=== PATIENT | male | born 1950 | race Caucasian/White ===

== ENCOUNTER 2018-01-17 19:06 | Emergency (ER) | payer MEDICARE ==
--- NOTE | 2018-01-17 22:00 | CT ---
CT ABDOMEN AND PELVIS: 01/17/2018 PROVIDED CLINICAL HISTORY: Abdominal pain. COMPARISON: 12/11/2017 FINDINGS: The visualized lung bases are free of significant opacities. There are two ureteral calculi present at the left ureterovesical junction. The larger of these sean ures 5 to 6 mm. The smaller measures 1 to 2 mm. There is moderate left hydronephrosis and left hydr oureter. There is prominent perinephric fat stranding. No additional urinary tract calculi are evid ent. The solid abdominal organs are suboptimally evaluated without IV contrast but demonstrate an otherwis e unremarkable unenhanced CT appearance. There is no bowel dilatation, additional inflammatory fat stranding, free fluid, or free air apparent . Surgical clips are again seen in the pelvis. The osseous structures demonstrate no concerning osteoblastic or osteolytic lesions. IMPRESSION: Distal left ureteral/ureterovesical junction calculi with moderate left hydronephrosis and hydrourete r and prominent perinephric fat stranding. POS: MARK
[2018-01-17] MEDS ORDERED: HYDROcodone/Acetaminophen 10/325 mg Tablet ONE (23:06)
== END 2018-01-17 23:15 | disposition home or self-care (01) ==
LOC: ERS 19:06
DX: N13.2 Hydronephrosis with renal and ureteral calculous obstruction (principal); I10 Essential (primary) hypertension; Z87.891 Personal history of nicotine dependence; Z79.899 Other long term (current) drug therapy; Z79.82 Long term (current) use of aspirin; Z79.84 Long term (current) use of oral hypoglycemic drugs
CPT/HCPCS: 74176

== ENCOUNTER 2018-04-13 08:24 | Outpatient (CLI) | payer MEDICARE ==
[2018-04-13 09:08] LABS: Estimated GFR-MDRD - POC Greater than 90
--- NOTE | 2018-04-13 13:10 | MRI ---
MRI LUMBAR SPINE WITH AND WITHOUT CONTRAST: HISTORY: Lumbar radiculopathy. Previous lumbar surgery. COMPARISON: None. TECHNIQUE: MRI lumbar spine is performed with and without intravenous Gadolinium administration. Multisequentia l, multiplanar imaging is performed. FINDINGS: There is appropriate T1 marrow signal intensity of the lumbar vertebrae. Lumbar spine vertebral body height is maintained. There is no fracture. No spondylolisthesis. No significant STIR hyperintens ity to suggest vertebral body edema from fracture. No evidence of ligamentous injury. There are typ e I and type II modic changes at the L5-S1 disk space. Symmetric signal intensity of the psoas muscles. Appropriate signal intensity of the visualized luisa d organs.. There is a small amount of fluid in the right perinephric space without associated right- sided hydronephrosis. Significance is uncertain. The conus medullaris terminates at the mid to lower aspect of T12. Post contrast images do not demonstrate any abnormal enhancement of the thecal sac or of the contents within the thecal sac. Additionally, there is no abnormal enhancement of the vertebral bodies. T12-L1: No significant central canal stenosis or neural foraminal narrowing. L1-L2: Adequate disk hydration. No significant central canal stenosis or neural foraminal narrowing . L2-L3: Adequate disk hydration. No significant central canal stenosis or neural foraminal narrowing . L3-L4: Desiccation with mild loss of disk space height. Generalized disk bulge, ligamentum flavum t hickening, and facet hypertrophy result in moderate central canal stenosis. Mild right and moderate left foraminal narrowing. L4-L5: Adequate disk hydration. No significant loss of disk space height. Generalized disk bulge, ligamentum flavum thickening, and facet hypertrophy result in minimal stenosis of the thecal sac. Th ere is mild narrowing of the right subarticular zone secondary to disk material and posterior element hypertrophy. There is some mass effect without obscuration of the traversing right L5 nerve root. Mild right and mild left foraminal narrowing. L5-S1: Desiccation with severe loss of disk space height. There is a right hemilaminectomy defect. There is no significant stenosis of the thecal sac. There is a broad-based disk bulge with a right subarticular component. This disk does abut and slightly displace the traversing right S1 nerve root . On the postcontrast images, there is also evidence of enhancing scar tissue in the right subarticu lar zone, which encompasses the traversing right S1 nerve root. There does appear to be some enhance ment associated with the nerve root. There is associated T2 hyperintensity and focal enlargement of the nerve root in the subarticular zone. A component of the abnormal soft tissue signal intensity in the right subarticular zone may be due to sequestered disk material, as suggested on sagittal image #8, series 8. IMPRESSION: 1. Postoperative changes of right hemilaminectomy defect at L5-S1. There is disk material in the ri ght subarticular zone with mass effect, edema, and enhancement involving the subarticular right S1 ne rve roots. There is encompassing scar tissue with some component of disk material present. There ma y be sequestered disk material in the right subarticular zone, compounding the overall abnormal signa l intensity noted in the right subarticular zone. This sequestered disk may contribute to what appea rs to be edema and abnormal enhancement of right S1 nerve root. 2. Degenerative disk disease at L3-L4, as described above. There is moderate to severe central tamara l stenosis. 3. Mild narrowing of the right subarticular zone at L4-L5. POS: MARK
[2018-04-13] MEDS ORDERED: Gadobenate Dimeglumine 529 MG/1 ML (20ML VIAL) ONE (14:07)
== END 2018-04-13 08:25 | disposition home or self-care (01) ==
LOC: TBSIIMAG 08:24
PROVIDERS: ATTEND Neurological Surgery
DX: M51.16 Intervertebral disc disorders with radiculopathy, lumbar region (principal); M48.061 Spinal stenosis, lumbar region without neurogenic claudication; R60.0 Localized edema; Z98.890 Other specified postprocedural states
CPT/HCPCS: 72158; 82565; A9579

== ENCOUNTER 2018-05-03 09:45 | Outpatient (CLI) | payer MEDICARE ==
[2018-05-03 13:20] LABS: Mean Corpuscular HGB CONC 33.4 g/dL (32.0-36.0); Mean Corpuscular Hemoglobin 33.2 pg (27.0-31.0); Mean Corpuscular Volume 99.4 fL (78.0-98.0); Mean Platelet Volume 7.9 fL (7.4-10.4); Platelet Count 302 thou/uL (130-400); RBC Distribution Width 13.5 % (11.5-14.5); Red Blood Cell (RBC) Count 4.51 mill/uL (4.70-6.10); White Blood Cell (WBC) Count 7.2 thou/uL (4.8-10.8)
[2018-05-03 13:41] LABS: Anion Gap 16 mmol/L (10-20); BUN (Urea Nitrogen) 17 mg/dL (8.4-25.7); Calc. Creatinine Clearance 0 mL/min (70-130); Calcium 9.8 mg/dL (7.8-10.44); Carbon Dioxide 23 mmol/L (23-31); Chloride 105 mmol/L (98-107); Estimated GFR-MDRD 82; Glucose 75 mg/dL (80-115); Potassium 4.3 mmol/L (3.5-5.1); Sodium 140 mmol/L (136-145)
--- NOTE | 2018-05-04 07:57 | EKG ---
Test Reason : Blood Pressure : / mmHG Vent. Rate : 054 BPM Atrial Rate : 054 BPM P-R Int : 160 ms QRS Dur : 102 ms QT Int : 434 ms P-R-T Axes : 066 059 076 degrees QTc Int : 411 ms Sinus bradycardia Nonspecific ST and T wave abnormality Abnormal ECG Confirmed by DR. Ally ALMONTE ([id number]) on 05/04/2018 7:56:46 AM Referred By: EVAN Confirmed By:DR. Ally ALMONTE
== END 2018-05-03 09:46 | disposition home or self-care (01) ==
LOC: LABBT 09:45
PROVIDERS: ATTEND Neurological Surgery
DX: Z01.818 Encounter for other preprocedural examination (principal); M48.061 Spinal stenosis, lumbar region without neurogenic claudication; M54.16 Radiculopathy, lumbar region
CPT/HCPCS: 80048; 85027; 93005; 93010

== ENCOUNTER 2018-05-10 05:57 | Day surgery (SDC) | payer MEDICARE ==
[2018-05-03 10:15] VITALS: BMI 30.9
--- NOTE | 2018-05-09 16:18 | HP ---
HISTORY OF PRESENT ILLNESS: Mr. Mead is a pleasant 68-year-old man who presents for evaluation of b ilateral S1 pains with certain movements and with prolonged recumbent positioning. Gait is mostly un affected. He has a new MRI from [facility], which reveals severe lumbar stenosis L3-L4 and lateral recess narrowing on the right at L5, which matched the symptoms that he presents with. He hopes to move for mei with surgery if possible. PAST MEDICAL HISTORY: Significant for prediabetes, hypercholesterolemia, asthma, previous cancer, co ronary arterial disease, and hypertension. CURRENT MEDICATIONS: Aspirin, Plavix, carvedilol, valsartan, hydrochlorothiazide, atorvastatin, levo thyroxine, metformin, ranitidine, dicyclomine, Bentyl, Xanax, nitroglycerin, F[place], temazepam and Sym bicort. PAST SURGICAL HISTORY: ACDF and lumbar decompression. ALLERGIES: No known drug allergies. PHYSICAL EXAMINATION: PSYCHIATRIC: Alert and oriented x3. Gait is somewhat slowed. Motor exam of lower extremities reveals 5/5 strength bilaterally in all muscle groups of the lower extremities. ASSESSMENT: Lumbar radiculopathy. PLAN: Dr. Haynes met with the patient, reviewed imaging ultimately advocated for L3-L4 decompression and right L5 facetectomy. He explained to the patient the risks, benefits, and alternatives to the p rocedure. The patient expressed understanding and would like to move forward with surgery as discuss ed. I do believe the patient is mentally competent and capable of making medical decisions for himse lf and we will move forward with surgery as planned. Zackary Bhatt PA-C dictating for Dr. Haynes.
[2018-05-10] MEDS ORDERED: Fentanyl 100 MCG/2 ML VIAL ONE (06:33)
[2018-05-10] MEDS ORDERED: Thrombin 5000 UNITS/5 ML VIAL ONE (06:39)
[2018-05-10] MEDS ORDERED: Bupivacaine HCl 0.5%/Epinephrine 1:200,000/PF 30 ml Vial ONE (06:39)
[2018-05-10] MEDS ORDERED: CEFAZOLIN/Water 2 GM/20 ML SYRINGE ONE ×2 (07:08→10:24)
[2018-05-10] MEDS ORDERED: Midazolam HCl 2 mg/2 ml Vial ONE (07:12)
[2018-05-10] MEDS ORDERED: HYDROcodone/Acetaminophen 5/325 mg Tablet ONE ×2 (10:14→11:16)
--- NOTE | 2018-05-10 12:45 | OP ---
DATE OF PROCEDURE: 05/10/2018 SURGEON: Oc Haynes M.D. ANIMAL KEEPER HEAD: Zackary Bhatt PA-C. INDICATION: Pain. DIAGNOSIS: Lumbar stenosis and lumbar radiculopathy. PROCEDURE: L3-L4 lumbar decompression and through a separate incision right L5 reoperation, decompre ssion. ANESTHESIA: General. TECHNIQUE: The patient was brought into the operating room and placed under general anesthesia. He was flipped from a supine to a prone position on the operating room table. Two linear incisions wer e planned, one over L3-4 and the second over L5-S1. After prepping and draping and after an appropri ate operative pause, the L3-4 incision was created. The soft tissues were swept away from midline. Self-retaining retractors were placed in the wound for optimal exposure. After confirming the approp riate location with C-arm fluoroscopy, an Adson rongeur as well as a high-speed cutting drill bit and 2, 3 and 4 mm Kerrisons were used to perform decompression at the L3-L4 segment. After decompressin g the central canal and lateral recesses, we redirected our attention to the L5-S1 segment where a se cond linear incision was created. We swept tissues away from midline on the right side. There was s car present secondary to a prior operative procedure. After confirming the appropriate level with C- arm fluoroscopy, bone defects were identified at the prior L5-S1 decompression. This decompression w as extended in a cephalad as well as lateral decompression in order to further decompress the exiting S1 nerve root. After decompressing this segment, the wound was irrigated. Hemostasis was maintaine d throughout. Both wounds were then irrigated. Both wounds had hemostasis maintained. For both wou nds, they were closed in anatomic layers. A pressure dressing was then applied and the procedure cam e to an end without known complication.
== END 2018-05-10 11:25 | disposition home or self-care (01) ==
LOC: SDC 05:57
PROVIDERS: ATTEND Neurological Surgery
PROC: 01NB0ZZ Release Lumbar Nerve, Open Approach (ICD-10-PCS; principal; 2018-05-10)
DX: M48.061 Spinal stenosis, lumbar region without neurogenic claudication (principal); M54.16 Radiculopathy, lumbar region; E78.00 Pure hypercholesterolemia, unspecified; J45.909 Unspecified asthma, uncomplicated; I25.10 Atherosclerotic heart disease of native coronary artery without angina pectoris; I10 Essential (primary) hypertension; Z87.891 Personal history of nicotine dependence; Z79.82 Long term (current) use of aspirin; Z79.01 Long term (current) use of anticoagulants; Z79.899 Other long term (current) drug therapy; Z79.84 Long term (current) use of oral hypoglycemic drugs; Z98.890 Other specified postprocedural states
CPT/HCPCS: 76001; J0131; J0670; J2250; J3010

== ENCOUNTER 2019-04-20 07:46 | Outpatient (CLI) | payer MEDICARE ==
[2019-04-20] MEDS ORDERED: Gadobenate Dimeglumine 529 MG/1 ML (20ML VIAL) ONE (09:00)
--- NOTE | 2019-04-20 09:26 | MRI ---
MR the lumbar spine with and without contrast INDICATION: 69-year-old male with history of 2 separate lumbar surgeries with chronic low back pain COMPARISON: MR the lumbar spine with and without contrast dated April 13, 2018 TECHNIQUE: Multiplanar multisequence MR images were obtained of lumbar spine with and without IV cont rast. Contrast: 20 mL MultiHance cc of MultiHance. FINDINGS: Bone marrow: Normal. Distal spinal cord and conus: Normal. Conus is seen to terminate at the T12 level. Visualized retroperitoneum and paraspinal soft tissues: There has been interval postsurgical change o f a laminectomy at L3-4. Vertebral levels: L5-S1: There is stable loss of disc space height in addition to a broad-based disc bulge and superimp osed right paracentral disc protrusion. There is stable moderate to severe narrowing of the right lateral recess with contact of the traversing right S1 nerve root by the disc protrusion. Mild bilate ral neural foraminal narrowing is stable. L4-5: There is a broad-based bulge with facet hypertrophy and ligament flavum hypertrophy inducing st able mild canal narrowing and mild bilateral neural foraminal narrowing L3-4: There is improvement in the central canal narrowing due to laminectomy at L3-4. The broad-based bulge inducing stable mild bilateral neural foraminal narrowing L2-3: No appreciable central canal or neuroforaminal narrowing. L1-L2: No appreciable central canal or neuroforaminal narrowing. T12-L1: No appreciable central canal or neuroforaminal narrowing. Postcontrast series: There is mild enhancement of the posterior epidural soft tissues at the laminect wale site at L3-4 likely related to scar. IMPRESSION: 1. Interval postoperative change of a laminectomy at L3-4 with improvement in the central canal narro wing seen from the prior exam. 2. Multilevel spondylosis of the lumbar spine is similar appearing. Mild central canal narrowing and mild neural foraminal narrowing at L4-5 is stable. Mild bilateral neural foraminal narrowing at L5-S1 is stable. The right paracentral disc protrusion L5-S1 inducing moderate to severe narrowing of the right lateral recess with contact of the traversing right S1 nerve root is stable. There is stable mild bilateral neural foraminal narrowing at L3-4.
== END 2019-04-20 07:47 | disposition home or self-care (01) ==
LOC: SCSMRI 07:46
PROVIDERS: ATTEND Neurological Surgery
DX: M47.26 Other spondylosis with radiculopathy, lumbar region (principal); M51.17 Intervertebral disc disorders with radiculopathy, lumbosacral region; M48.061 Spinal stenosis, lumbar region without neurogenic claudication; M48.07 Spinal stenosis, lumbosacral region; Z98.890 Other specified postprocedural states
CPT/HCPCS: 72158; 82565; A9577

== ENCOUNTER 2019-05-16 06:44 | Outpatient (CLI) | payer MEDICARE ==
[2019-05-16 10:54] LABS: Hemoglobin 15.3 g/dL (14.0-18.0); Mean Corpuscular HGB CONC 33.3 g/dL (32.0-36.0); Mean Corpuscular Hemoglobin 31.9 pg (27.0-31.0); Mean Corpuscular Volume 95.8 fL (78.0-98.0); Mean Platelet Volume 7.5 fL (7.4-10.4); Platelet Count 306 thou/uL (130-400); RBC Distribution Width 13.2 % (11.5-14.5); White Blood Cell (WBC) Count 12.8 thou/uL (4.8-10.8)
[2019-05-16 11:18] LABS: Anion Gap 14 mmol/L (10-20); BUN (Urea Nitrogen) 19 mg/dL (8.4-25.7); Calc. Creatinine Clearance 0 mL/min (70-130); Calcium 9.7 mg/dL (7.8-10.44); Carbon Dioxide 24 mmol/L (23-31); Chloride 102 mmol/L (98-107); Estimated GFR-MDRD 85; Glucose 83 mg/dL (83-110); Potassium 3.7 mmol/L (3.5-5.1); Sodium 136 mmol/L (136-145)
== END 2019-05-16 06:45 | disposition home or self-care (01) ==
LOC: LABBT 06:44
PROVIDERS: ATTEND Neurological Surgery
DX: Z01.812 Encounter for preprocedural laboratory examination (principal); M54.16 Radiculopathy, lumbar region
CPT/HCPCS: 80048; 85027

== ENCOUNTER 2019-05-23 06:09 | Day surgery (SDC) | payer MEDICARE ==
[2019-05-16 09:39] VITALS: BMI 32.1
[2019-05-23] MEDS ORDERED: Bupivacaine HCl 0.5%/Epinephrine 1:200,000/PF 30 ml Vial ONE (06:24)
[2019-05-23] MEDS ORDERED: Thrombin 5000 UNITS/5 ML VIAL ONE (06:24)
[2019-05-23] MEDS ORDERED: Fentanyl 100 MCG/2 ML VIAL ONE ×2 (06:38→07:35)
--- NOTE | 2019-05-23 07:25 | HP ---
HISTORY OF PRESENT ILLNESS: Mr. Mead underwent lumbar decompression of L3-L4 decompression last year, did quite well until beginning of May when he attempted to move a treadmill at the house. This resulted in low back pain, but then followed up with both us and physical therapy as well as pain management and no longer having radicular pains. He reports his pain has continued to re-develop that seems to match S1 radiculopathy. He also has symptoms of neurogenic claudication. He has an MRI from [facility] that reveals severe stenosis essentially at L3-4 and likely explains this. PAST MEDICAL HISTORY: Hypercholesterolemia, type 2 diabetes, coronary arterial disease, hypertension, asthma. PAST SURGICAL HISTORY: CABG, lumbar decompression, . MEDICATIONS: 1. Aspirin. 2. Plavix. 3. Carvedilol. 4. Valsartan. 5. Atorvastatin. 6. Levothyroxine. 7. Metformin. 8. Ranitidine. 9. Dicyclomine. 10. Alprazolam. 11. Centrahoma. 12. Temazepam. 13. Budesonide. PHYSICAL EXAMINATION: The patient is alert and oriented x3. Gait is mildly antalgic right lower extremity. Leg raise negative. ASSESSMENT: Lumbar stenosis with claudication. PLAN: Dr. Haynes met with the patient, reviewed imaging, advocated for L3-4 decompression. He explained to the patient the risks, benefits, and alternatives to the procedure. The patient expressed understanding and elected to move forward with surgery as discussed. I do believe the patient is mentally competent and capable of making medical decisions for himself. We will move forward with surgery as planned. Job ID: [id number]
[2019-05-23] MEDS ORDERED: Tamsulosin HCl 0.4 MG CAP ONE (09:57)
[2019-05-23] MEDS ORDERED: HYDROcodone/Acetaminophen 5/325 mg Tablet ONE (12:12)
--- NOTE | 2019-05-23 16:14 | OP ---
DATE OF PROCEDURE: 05/23/2019 LIQUIFIED NATURAL GAS TECHNICIAN: Zackary Bhatt PA-C INDICATION: Pain. DIAGNOSES: Lumbar radiculopathy and lumbar stenosis. PROCEDURES PERFORMED: Reoperation at L3-L4, reoperation decompression, and laminectomy. Separately, right L5 hemilaminectomy, medial facetectomy, and decompression. ANESTHESIA: General. DESCRIPTION OF PROCEDURE: The patient was brought into the operating room, placed under general anesthesia. He was flipped from the supine to prone position on operating room table. The previous linear incisions were identified and prepped and draped spanning 3-4 and 5-1. After prepping and draping and after an appropriate operative pause, the incision was created. The soft tissues were swept right of midline down at L5. A high-speed cutting drill bit as well as 2, 3, and 4 mm Kerrisons were used to perform a laminectomy at this segment. The lateral recesses including the descending S1 nerve root were decompressed. We then redirected our attention to the level above at L3-L4, where the prior laminectomy site was identified along the inferior aspect of the segment. The spinous process and laminectomy superiorly were removed until the lateral recesses and central canal decompressed. There was synovial cyst present on the left side at the L3-L4 segment. After decompressing the segment, the wound was irrigated. Hemostasis was maintained throughout. The wound was then closed in anatomic layers and a pressure dressing was applied. There were no known procedural complications. Job ID: [id number]
== END 2019-05-23 12:57 | disposition home or self-care (01) ==
LOC: SDC 06:09
PROVIDERS: ATTEND Neurological Surgery
PROC: 01NB0ZZ Release Lumbar Nerve, Open Approach (ICD-10-PCS; principal; 2019-05-23)
PROC: 01NB0ZZ Release Lumbar Nerve, Open Approach (ICD-10-PCS; 2019-05-23)
DX: M48.062 Spinal stenosis, lumbar region with neurogenic claudication (principal); M54.16 Radiculopathy, lumbar region; M71.38 Other bursal cyst, other site; I10 Essential (primary) hypertension; E78.5 Hyperlipidemia, unspecified; E78.00 Pure hypercholesterolemia, unspecified; E11.9 Type 2 diabetes mellitus without complications; I25.10 Atherosclerotic heart disease of native coronary artery without angina pectoris; J45.909 Unspecified asthma, uncomplicated; K58.9 Irritable bowel syndrome, unspecified; K21.9 Gastro-esophageal reflux disease without esophagitis; F17.220 Nicotine dependence, chewing tobacco, uncomplicated; Z85.46 Personal history of malignant neoplasm of prostate; Z79.02 Long term (current) use of antithrombotics/antiplatelets; Z79.82 Long term (current) use of aspirin; Z79.84 Long term (current) use of oral hypoglycemic drugs; Z79.899 Other long term (current) drug therapy; Z98.890 Other specified postprocedural states
CPT/HCPCS: 76000; J0131; J0670; J0690; J3010

== ENCOUNTER 2020-05-08 09:31 | Outpatient (CLI) | payer MEDICARE ==
--- NOTE | 2020-05-08 11:18 | MRI ---
MRI of thelumbar spine with and without contrast: 05/08/2020 COMPARISON:04/20/2019 HISTORY:Right leg pain, back pain, lumbar radiculopathy, multiple prior surgeries TECHNIQUE: Multiplanar multisequence MR imaging of thelumbar spine obtained with and without contrast Findings:The sagittal STIR imaging demonstrates no focal area of osseous marrow edema. Mild anterolisthesis at L5-S1 noted measuring 5 mm. On the basis of 5 lumbar type vertebral bodies, the conus medullaris terminates at the T12-L1 level. T12-L1: Mild bilateral facet hypertrophy with no significant central canal or neural foraminal stenos is. L1-2: Mild bilateral facet hypertrophy. No significant central canal or neural foraminal stenosis. L2-3: There is bilateral facet hypertrophy and hypertrophy of the ligamentum flavum, left greater ugo n right. Mild left neural foraminal stenosis and left lateral recess stenosis. No significant right neural foraminal. L3-4: Bilateral facet hypertrophy present. There is disc space narrowing with disc desiccation and di sc bulge. There is a central disc herniation which demonstrates mild superior migration, slightly larger than on the prior examination. Bilateral laminectomy change is suspected. There is a moderate degree of central canal stenosis which does not appear significantly changed when compared to the prior examination. There is mild right and moderate left neural foraminal stenosis, similar when compared to the prior examination. L4-5: Bilateral facet hypertrophy present. There is mild disc bulge with mild/moderate central canal stenosis. Central canal stenosis has slightly worsened since the prior exam. Mild bilateral neural foraminal stenosis noted. L5-S1: Prominent bilateral facet hypertrophy, right greater than left. There is disc space narrowing with disc desiccation, degenerative endplate change, and disc bulge. There is moderate right and mild left neural foraminal stenosis. Stable mild/moderate central canal stenosis. There is stable pro minent right lateral recess stenosis. There is a questionable anterior synovial cyst emanating from the right facet joint at L5-S1 measuring in the 3-4 mm range. This could alternatively represent flui d adjacent to a mildly compressed right S1 nerve root. The postcontrast imaging demonstrates no abnormal enhancement involving the contents of the thecal sa c, the intervertebral discs, or the imaged osseous structures. Review of the retroperitoneal structures demonstrates no acute findings. IMPRESSION:Multilevel postoperative and degenerative change within the lumbar spine, slightly worsene d as detailed above.
[2020-05-08] MEDS ORDERED: Magnevist 469MG/ML 20 ML VIAL ONE (14:34)
== END 2020-05-08 09:32 | disposition home or self-care (01) ==
LOC: TBSIIMAG 09:31
PROVIDERS: ATTEND Neurological Surgery
DX: M47.26 Other spondylosis with radiculopathy, lumbar region (principal); Z98.890 Other specified postprocedural states
CPT/HCPCS: 72158; 82565; A9579

== ENCOUNTER 2020-07-04 07:09 | Outpatient (CLI) | payer MEDICARE ==
[2020-07-04 15:15] LABS: Hemoglobin 12.3 g/dL (14.0-18.0); Mean Corpuscular HGB CONC 33.5 G/DL (32.0-36.0); Mean Corpuscular Hemoglobin 32.7 PG (27.0-33.0); Mean Corpuscular Volume 97.6 fl (80.0-100.0); Platelet Count 285 10x3/uL (130-400); RBC Distribution Width 13.4 % (11.5-14.5); Red Blood Cell (RBC) Count 3.76 10x6/uL (4.40-5.80); White Blood Cell (WBC) Count 8.7 10x3/uL (4.5-11.0)
[2020-07-04 15:35] LABS: Anion Gap 15 mmol/L (10-20); BUN (Urea Nitrogen) 18 mg/dL (8.4-25.7); Calc. Creatinine Clearance 0 mL/min (70-130); Calcium 9.5 mg/dL (7.8-10.44); Carbon Dioxide 25 mmol/L (23-31); Chloride 102 mmol/L (98-107); Estimated GFR-MDRD 80; Glucose 69 mg/dL (83-110); Potassium 4.1 mmol/L (3.5-5.1); Sodium 138 mmol/L (136-145)
--- NOTE | 2020-07-06 20:56 | EKG ---
Test Reason : Blood Pressure : / mmHG Vent. Rate : 062 BPM Atrial Rate : 062 BPM P-R Int : 164 ms QRS Dur : 104 ms QT Int : 422 ms P-R-T Axes : 050 046 082 degrees QTc Int : 428 ms Normal sinus rhythm Nonspecific ST abnormality Abnormal ECG No previous ECGs available Confirmed by Juani CARLSON ([id number]) on 07/06/2020 8:55:21 PM Referred By: CHANDRIKA Confirmed By:Juani CARLSON
== END 2020-07-04 07:10 | disposition home or self-care (01) ==
LOC: LABBT 07:09
PROVIDERS: ATTEND Neurological Surgery
DX: Z01.818 Encounter for other preprocedural examination (principal); M48.061 Spinal stenosis, lumbar region without neurogenic claudication; M54.16 Radiculopathy, lumbar region
CPT/HCPCS: 80048; 85027; 87635; 93005; 93010; U0003

== ENCOUNTER 2020-07-07 16:21 | Outpatient (CLI) | payer MEDICARE ==
[2020-07-08 13:52] LABS: SARS-CoV-2 MS2 Positive; SARS-CoV-2 N Gene Negative; SARS-CoV-2 S Gene Negative; SARS-CoV-2 by NAA Not Detected (NotDetected); SARS-CoV-2 orf1ab Negative
== END 2020-07-07 16:22 | disposition home or self-care (01) ==
LOC: LABBT 16:21
PROVIDERS: ATTEND Neurological Surgery
DX: M54.16 Radiculopathy, lumbar region (principal); M48.061 Spinal stenosis, lumbar region without neurogenic claudication; Z20.828 Contact with and (suspected) exposure to other viral communicable diseases
CPT/HCPCS: 87635; U0003

== ENCOUNTER 2020-07-09 06:10 | Day surgery (SDC) | payer MEDICARE ==
[2020-07-08 09:10] VITALS: BMI 35.4
[2020-07-09] MEDS ORDERED: Bupivacaine PF 0.5% 30 ML VIAL ONE (06:27)
[2020-07-09] MEDS ORDERED: Thrombin 5000 UNITS/5 ML VIAL ONE (06:27)
[2020-07-09] MEDS ORDERED: EPINEPHrine 1 MG/ML AMP ONE (06:27)
[2020-07-09] MEDS ORDERED: Fentanyl 100 MCG/2 ML VIAL ONE (06:57)
[2020-07-09] MEDS ORDERED: Calcium Chloride 1 GM/10 ML Abboject SYRINGE ONE (09:15)
[2020-07-09] MEDS ORDERED: ePHEDrine 50 MG/ML VIAL ONE (09:15)
[2020-07-09] MEDS ORDERED: PHENYLEPHRINE-NS 100 MCG/ML 10 ML SYRINGE ONE (09:15)
[2020-07-09] MEDS ORDERED: Ondansetron PF 4 MG/2 ML Vial ONE (09:15)
[2020-07-09] MEDS ORDERED: Glycopyrrolate 0.2 MG/ML 5 ML SYRINGE ONE (09:15)
[2020-07-09] MEDS ORDERED: PROPOFOL 200 MG/20 ML VIAL ONE (09:15)
[2020-07-09] MEDS ORDERED: Lidocaine 1% PF 5 ML VIAL ONE (09:15)
[2020-07-09] MEDS ORDERED: Rocuronium Bromide 10 MG/ML (10ML VIAL) ONE (09:15)
[2020-07-09] MEDS ORDERED: Dexamethasone 20 MG/5 ML VIAL ONE (09:15)
[2020-07-09] MEDS ORDERED: Tamsulosin HCl 0.4 MG CAP ONE (10:00)
--- NOTE | 2020-07-09 10:00 | OP ---
DATE OF PROCEDURE: 07/09/2020 BILL PEDDLER: Zackary Bhatt PA-C. INDICATION: Pain. DIAGNOSES: Lumbar stenosis, lumbar radiculopathy. PROCEDURES PERFORMED: L4-5 decompression, right L5-S1 decompression, medial facetectomy, synovial cyst resection. ANESTHESIA: General. DESCRIPTION OF PROCEDURE: The patient was brought into the operating room and placed under general anesthesia. He was flipped from the supine to prone position on the operating room table. A linear incision was planned spanning L4-S1. This encompassed an area of a prior incision. After prepping and draping and after an appropriate preoperative pause, the incision was created. The soft tissues were swept away from midline. Self-retaining retractors were placed and the C-arm images were obtained to confirm the appropriate level. An Adson rongeur was used to remove the spinous process at L5 and the inferior aspect of L4. High-speed cutting drill bit as well as 2, 3, and 4 mm Kerrisons were used to perform a laminectomy along the inferior aspect of L4 and through the superior aspect of L5. The laminectomy was extended on the right all the way down to the top of S1. The facet joint at L5-S1 was shaved down beyond what was already missing from our prior surgery. The exiting S1 and descending S1 nerve root could be well identified. There was a synovial cyst present most obvious extra-spinal, but also adherent to the thecal sac just medial to the pedicle near S1. After completing the decompression, the wound was irrigated. Hemostasis was maintained throughout. The wound was then closed in anatomic layers, and a pressure dressing was applied. There were no known procedural complications. Job ID: [id number]
[2020-07-09] MEDS ORDERED: Acetaminophen/Codeine 30-300mg Tablet ONE (12:51)
== END 2020-07-09 13:00 | disposition home or self-care (01) ==
LOC: SDC 06:10
PROVIDERS: ATTEND Neurological Surgery
PROC: 01NB0ZZ Release Lumbar Nerve, Open Approach (ICD-10-PCS; principal; 2020-07-09)
DX: M48.061 Spinal stenosis, lumbar region without neurogenic claudication (principal); M54.16 Radiculopathy, lumbar region; M71.38 Other bursal cyst, other site; I10 Essential (primary) hypertension; E78.5 Hyperlipidemia, unspecified; K21.9 Gastro-esophageal reflux disease without esophagitis; Z87.891 Personal history of nicotine dependence; Z79.02 Long term (current) use of antithrombotics/antiplatelets; Z79.82 Long term (current) use of aspirin; Z79.84 Long term (current) use of oral hypoglycemic drugs; Z79.899 Other long term (current) drug therapy
CPT/HCPCS: 76000; J0171; J0690; J1100; J2405; J2704; J3010; J3490; S0020